=== PATIENT | male | born 1945 | race Hispanic/Latino ===

== ENCOUNTER 2018-01-29 21:26 | Inpatient (IN) | payer MEDICARE, OTHER ==
--- NOTE | 2018-01-29 21:36 | ED PDOC ---
Arrival/HPI <Mitesh York - Last Filed: 01/29/18 22:27> - General Historian: Patient <Diaz Chun - Last Filed: 01/29/18 23:47> - General Time Seen by Provider: 01/29/18 21:28 - History of Present Illness Narrative History of Present Illness (Text): 01/29/18 21:31 72 y/o male, pmh including htn/hyperlipidemia/dm, nkda, c/o coughing/fatigue/ fever x 3 days. Pt. stated that he has been not feeling well for the past 3 days, aching pain all over the body, associated with coughing and fever at home , no chest pain or shortness of breath, no night sweat, no change in vision, no flank pain, no rash, no neck stiffness, no recent traveling, no other medical or psychological complaints. (Diaz Chun) Past Medical History - Provider Review Nursing Documentation Reviewed: Yes - Cardiac Hx Pacemaker: No - Pulmonary Hx Respiratory Disorders: No - Neurological Hx Paralysis: No - HEENT Hx HEENT Disorder: No - Renal Hx Renal Disorder: No - Endocrine/Metabolic Hx Diabetes Mellitus Type 2: Yes - Hematological/Oncological Hx Blood Transfusions: No - Integumentary Hx Dermatological Disorder: No - Musculoskeletal/Rheumatological Hx Arthritis: Yes - Gastrointestinal Hx Gastrointestinal Disorders: No - Genitourinary/Gynecological Hx Genitourinary Disorders: No - Psychiatric Hx Emotional Abuse: No Hx Physical Abuse: No Hx Substance Use: No - Surgical History Hx Appendectomy: Yes Hx Cholecystectomy: Yes - Anesthesia Hx Anesthesia Reactions: No Hx Malignant Hyperthermia: No - Suicidal Assessment Feels Threatened In Home Enviroment: No <Diaz Chun - Last Filed: 01/29/18 23:47> Family/Social History - Physician Review Nursing Documentation Reviewed: Yes Family/Social History: Unknown Family HX Smoking Status: Former Smoker Hx Alcohol Use: Yes (5 BEERS/WEEK) Hx Substance Use: No Hx Substance Use Treatment: No <Diaz Chun - Last Filed: 01/29/18 23:47> Allergies/Home Meds <Mitesh York - Last Filed: 01/29/18 22:27> <Diaz Chun - Last Filed: 01/29/18 23:47> Allergies/Adverse Reactions: Allergies No Known Allergies Allergy (Verified 01/29/18 21:31) Home Medications: Home Meds Medication Instructions Recorded Confirmed Glipizide [Glucotrol] 5 mg PO DAILY 11/17/14 01/29/18 amLODIPine [Norvasc] 10 mg PO DAILY 11/17/14 01/29/18 Clopidogrel [Plavix] 75 mg PO DAILY 11/20/14 01/29/18 Aspirin [Adult Low Dose Aspirin EC] 81 mg PO DAILY 02/23/16 01/29/18 Atorvastatin [Lipitor] 10 mg PO DAILY 02/23/16 01/29/18 MetFORMIN [glucoPHAGE] 500 mg PO BID 02/23/16 01/29/18 Lisinopril/Hydrochlorothiazide 1 each PO DAILY 05/03/17 01/29/18 [Zestoretic 20-25 mg Tablet] Review of Systems - Review of Systems Constitutional: Fatigue, Fevers Eyes: absent: Vision Changes ENT: Rhinorrhea. absent: Hearing Changes, Sore Throat Respiratory: Cough, Sputum. absent: SOB, Wheezing Cardiovascular: absent: Chest Pain Gastrointestinal: absent: Abdominal Pain, Diarrhea, Nausea, Vomiting Musculoskeletal: Myalgias. absent: Arthralgias, Back Pain Skin: absent: Rash, Pruritis Neurological: absent: Headache, Dizziness Psychiatric: absent: Anxiety, Depression, Suicidal Ideation <Diaz Chun Q - Last Filed: 01/29/18 23:47> Physical Exam - Systems Exam Head: Present: Atraumatic, Normocephalic Pupils: Present: PERRL Extroacular Muscles: Present: EOMI Conjunctiva: Present: Normal Mouth: Present: Moist Mucous Membranes Pharnyx: No: ERYTHEMA, EXUDATE, TONSILS ENLARGED Nose (External): Present: Atraumatic. No: Abrasion, Contusion, Laceration Nose (Internal): Present: Normal Inspection, No Active Bleeding. No: Rhinorrhea , Septal Hematoma, Epistaxis Neck: Present: Normal Range of Motion, Trachea Midline. No: Meningeal Signs, MIDLINE TENDERNESS, Paraspinal Tenderness, Lymphadenopathy Respiratory/Chest: Present: Clear to Auscultation, Good Air Exchange, Rhonchi ( LLL). No: Respiratory Distress, Accessory Muscle Use, Wheezes, Decreased Breath Sounds, Rales, Retracting, Tachypneic, Tender to Palpation Cardiovascular: Present: Regular Rate and Rhythm, Normal S1, S2. No: Murmurs Abdomen: Present: Normal Bowel Sounds. No: Tenderness, Distention, Peritoneal Signs, Rebound, Guarding Back: Present: Normal Inspection Upper Extremity: Present: Normal Inspection. No: Cyanosis, Edema Lower Extremity: Present: Normal Inspection. No: Edema Neurological: Present: GCS=15, CN II-XII Intact, Speech Normal, Motor Func Grossly Intact, Gait Normal, Memory Normal Skin: Present: Warm, Dry, Normal Color. No: Rashes Psychiatric: Present: Alert, Oriented x 3, Normal Insight, Normal Concentration <Diaz Chun Q - Last Filed: 01/29/18 23:47> Vital Signs Temp Pulse Resp BP Pulse Ox 01/29/18 23:16 100.2 F H 102 H 25 H 121/42 L 95 01/29/18 22:23 100 F H 01/29/18 21:41 100 F H 01/29/18 21:29 100 F H 113 H 21 94 L Medical Decision Making <Mitesh York - Last Filed: 01/29/18 22:27> - Critical Care Critical Care Minutes: 30 minutes Critical Care Time: Unstable - RAD Interpretation Civil Project Engineer: Radiologist - EKG Interpretation Interpreted by ED Physician: Yes Type: 12 lead EKG Comparison: Com.w/previous EKG <Diaz Chun Q - Last Filed: 01/29/18 23:47> ED Course and Treatment: 01/29/18 21:41 -labs/ua/rapid flu -chest xray -IVF/tylenol -observe and reassess 01/29/18 22:28 -Lactic acid 3.9, IV rocephine/azithromycin ordered, rapid flu is negative -Code sepsis activated. 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 -Chest xray show LEFT lower lobe pneumonia. -Labs show no acute findings except wbc 22.2, BUN 40, BNP 2800, troponin is 0.07 which is indeterminate with unknown onset of WPW. -Lactic acid 3.9 -UA is pending -Rapid flu is negative -Pt. will need admission for IV antibiotic with the dietetics professor consult and infectious disease consult. -Paging the admitting physician Dr. Cameron for admission and DR. Benton for ICU consult 01/29/18 23:28 -I discussed the case with DR. Cameron, discussed about the case/labs/ radiology result, agreed on the admission to his service with DR. Ryan garcia and Dr. Pierre for routine consults. -I discussed the case with Dr. Benton, discussed about the case/labs/radiology result, came to evaluate the patient. -I discussed with Dr. York, discussed about the case/labs/radiology result , agreed this patient needs ICU consult and admission. 01/29/18 23:46 -Dr. Benton evaluated the patient and discussed with DR. York (Diaz Chun) - Critical Care Narrative Critical Care (Text): 01/29/18 23:31 Sepsis/pneumonia/elevated troponin, hypotensive, dietetics professor/ICU/infectious disease consults. (Diaz Chun) - Lab Interpretations Lab Results: 01/29/18 22:50 01/29/18 22:52 Lab Results 01/29/18 22:52: Sodium 135, Chloride 93 L, Potassium 4.4, Carbon Dioxide 31, Anion Gap 16, BUN 40 H, Creatinine 1.4, Est GFR ( Amer) > 60, Est GFR ( Non-Af Amer) 50, Random Glucose 330 H* D, Calcium 9.2, Magnesium 2.1, Total Bilirubin 0.6, AST 32, ALT 48, Alkaline Phosphatase 89, Lactate Dehydrogenase 408, Total Creatine Kinase 30 L, Troponin I 0.07 D, NT-Pro-B Natriuret Pep 2800 H, Total Protein 7.0, Albumin 3.5, Globulin 3.5, Albumin/Globulin Ratio 1.0 L 01/29/18 22:50: WBC 22.2 H D, RBC 4.09, Hgb 13.0 L, Hct 38.8 L, MCV 94.9, MCH 31.8, MCHC 33.5, RDW 14.2, Plt Count 327, MPV 9.8, Gran % 89.0 H, Lymph % (Auto ) 4.3 L, [place]berg % (Auto) 6.6 H, Eos % (Auto) 0.0 L, Baso % (Auto) 0.1, Gran # 19.77 H, Lymph # (Auto) 1.0 L, [place] # (Auto) 1.5 H, Eos # (Auto) 0.0, Baso # ( Auto) 0.03, Neutrophils % (Manual) Pending, Lymphocytes % (Manual) Pending, Monocytes % (Manual) Pending 01/29/18 21:35: pO2 121 H, VBG pH 7.35, VBG pCO2 54.0, VBG HCO3 29.8 H, VBG Total CO2 31.5 H, VBG O2 Sat (Calc) 98.7 H, VBG Base Excess 2.9 H, VBG Potassium 6.4 H*, Sodium 132.0, Chloride 96.0 L, Glucose 316 H, Lactate 3.9 H, FiO2 21.0, Venous Blood Potassium 6.4 H* 01/29/18 21:35: Influenza Typ A,B (EIA) Negative for flu a/b - RAD Interpretation Radiology Orders: 01/29/18 21:37 CHEST PORTABLE [RAD] Stat 01/29/18 21:37 CHEST PORTABLE [RAD] Stat FINDINGS: Lungs: Increased opacity within retrocardiac region. Pleural space: No pleural effusion. No pneumothorax. Heart: Borderline cardiomegaly. Mediastinum: Atherosclerosis of thoracic aorta. Bones/joints: No acute fracture. Tubes, lines and devices: Leads overlying chest. IMPRESSION: 1. LEFT lower lobe atelectasis and/or pneumonia. 2. Incidental/non-acute findings are described above. Thank you for allowing us to participate in the care of your patient. Dictated and Authenticated by: Justino Lama MD 01/29/2018 11:07 PM Eastern Time ([place] & [place]) (Diaz Chun) - EKG Interpretation EKG Interpretation (Text): 01/29/18 22:01 Sinus Tachycardia @ 109 BPM, WPW noted with PAC and delta waves, compared with previous ekgs. (Diaz Chun) - Medication Orders Current Medication Orders: Sodium Chloride (Sodium Chloride 0.9%) 1,000 mls @ 100 mls/hr IV .Q10H GHAZAL Last Admin: 01/29/18 22:30 Dose: 100 mls/hr eMAR Start Stop Document 01/29/18 22:30 JOL (Rec: 01/29/18 23:29 JOL [id number]) Intravenous Solution Start Date 01/29/18 Start Time 22:30 Azithromycin (Zithromax 500mg In Ns) 500 mg in 250 mls @ 167 mls/hr IVPB STAT STA PRN Reason: Protocol Stop: 01/29/18 23:55 Discontinued Medications Acetaminophen (Tylenol 325mg Tab) 650 mg PO STAT STA Stop: 01/29/18 21:38 Last Admin: 01/29/18 22:23 Dose: 650 mg MAR Pain/Vitals Document 01/29/18 22:23 JOL (Rec: 01/29/18 22:24 JOL [id number]) Pain Reassessment Is This A Pain ReAssessment? No Sleep Is patient sleeping during reassessment? No Presence of Pain Presence of Pain No Vitals Temperature (97.6 F-99.6 F) 100 F Temperature Source Oral Albuterol/Ipratropium (Duoneb 3 Mg/0.5 Mg (3 Ml) Ud) 3 ml IH Q15M GHAZAL Stop: 01/29/18 22:46 Last Admin: 01/29/18 23:10 Dose: 3 ml Aspirin (Aspirin) 325 mg PO STAT STA Stop: 01/29/18 23:24 Ceftriaxone Sodium (Rocephin 1 Gram Ivpb) 1 gm in 100 mls @ 200 mls/hr IVPB STAT STA PRN Reason: Protocol Stop: 01/29/18 22:55 Last Admin: 01/29/18 23:10 Dose: 200 mls/hr eMAR Start Stop Document 01/29/18 23:10 JOL (Rec: 01/29/18 23:29 JOL [id number]) Intravenous Solution Start Date 01/29/18 Start Time 23:10 End Date 01/29/18 End time 23:40 Total Infusion Time 30 - PA / MACHINE ETCHER / Resident Statement MELCHOR has reviewed & agrees with the documentation as recorded. MELCHOR has examined the patient and agrees with the treatment plan. <Mitesh York - Last Filed: 01/29/18 22:27> - PA / MACHINE ETCHER / Resident Statement MELCHOR has reviewed & agrees with the documentation as recorded. MELCHOR has examined the patient and agrees with the treatment plan. <Diaz Chun - Last Filed: 01/29/18 23:47> Disposition/Present on Arrival <Mitesh York - Last Filed: 01/29/18 22:27> - Present on Arrival Any Indicators Present on Arrival: No History of DVT/PE: No History of Uncontrolled Diabetes: No Urinary Catheter: No History of Decub. Ulcer: No History Surgical Site Infection Following: None - Disposition Have Diagnosis and Disposition been Completed?: Yes Disposition Time: 21:41 Patient Plan: Admission, ICU <Diaz Chun - Last Filed: 01/29/18 23:47> - Disposition Diagnosis: Sepsis, Pneumonia, WPW (Lhrns-Ammfsqkdo-Jieyf syndrome), Elevated troponin, Dehydration, CHF (congestive heart failure) Disposition: HOSPITALIZED Patient Problems: Current Active Problems Problem Status Onset Sepsis Acute Pneumonia Acute WPW (Mcmgx-Ppsdistug-Ssrhk syndrome) Acute Elevated troponin Acute Dehydration Acute CHF (congestive heart failure) Acute Condition: GUARDED Discharge Instructions (ExitCare): Heart Failure (ED), Sepsis (ED), Ty- Parkinson-White Syndrome (ED) Referrals: Angel Cameron MD [Primary Care Provider] - Follow up with primary
[2018-01-29 22:14] LABS: VENOUS BLOOD GAS BASE EXCESS 2.9 mmol/L (0.0-2.0); VENOUS BLOOD GAS PO2 121 mm/Hg (30-55); VENOUS BLOOD PH 7.35 (7.32-7.43)
[2018-01-29] MEDS: Albuterol-Ipratrop 3 mg / 0.5 (3 ml) UD IH SCH ×3 (22:24→23:10)
[2018-01-29] MEDS ORDERED: cefTRIAXone 1 gm 1 GM/100 ML BAG IVPB STA (22:26)
[2018-01-29] MEDS ORDERED: Azithromycin 500MG/NS 250ml 500 MG/250 ML BAG IVPB STA (22:26)
[2018-01-29] MEDS: Sodium Chloride 0.9% 1,000 ML IV SCH (22:30)
[2018-01-29 23:06] LABS: BASO # 0.03 K/mm3 (0.0-2.0); BASO % 0.1 % (0.0-3.0); GRAN # 19.77 (1.4-6.5); LYMPH % 4.3 % (22.0-35.0); MEAN CELL VOLUME 94.9 fl (80.0-105.0); MEAN CORPUSCULAR HEMOGLOBIN 31.8 pg (25.0-35.0); MEAN CORPUSCULAR HGB CONC 33.5 g/dl (31.0-37.0); MEAN PLATELET VOLUME 9.8 fl (7.0-11.0); MONO # 1.5 (0.1-0.6); MONO % 6.6 % (1.0-6.0); PLATELET COUNT 327 10^3/uL (120.0-450.0); RBC 4.09 10^6/uL (3.5-6.1); RED CELL DISTRIBUTION WIDTH 14.2 % (11.5-14.5); WHITE BLOOD COUNT 22.2 10^3/ul (4.5-11.0)
--- NOTE | 2018-01-29 23:07 | RAD ---
EXAM: XR Chest, 1 View CLINICAL HISTORY: 72 years old, male; Signs and symptoms; Shortness of breath; Additional info: Medical clearance TECHNIQUE: Frontal view of the chest. COMPARISON: No relevant prior studies available. FINDINGS: Lungs: Increased opacity within retrocardiac region. Pleural space: No pleural effusion. No pneumothorax. Heart: Borderline cardiomegaly. Mediastinum: Atherosclerosis of thoracic aorta. Bones/joints: No acute fracture. Tubes, lines and devices: Leads overlying chest. IMPRESSION: 1. LEFT lower lobe atelectasis and/or pneumonia. 2. Incidental/non-acute findings are described above.
[2018-01-29 23:19] LABS: B-TYPE NATRIURETIC PEPTIDE 2800 pg/mL (0-450); TROPONIN I 0.07 ng/mL
[2018-01-29 23:26] LABS: ALBUMIN 3.5 g/dL (3.0-4.8); ALT/SGPT 48 U/L (7-56); AST/SGOT 32 U/L (17-59); BLOOD UREA NITROGEN 40 mg/dL (7-21); CALCIUM 9.2 mg/dL (8.4-10.5); GFR AFRICAN-AMERICAN > 60; GFR NON-AFRICAN AMERICAN 50
[2018-01-30 00:21] LABS: BAND 6 % (0-2); LYMPHOCYTE 3 % (22.0-35.0); MONOCYTE 6 % (1.0-6.0); NEUTROPHIL 85 % (50.0-70.0); PLATELET ESTIMATE NORMAL (NORMAL)
[2018-01-30 00:22] LABS: ROULEAU SLIGHT
--- NOTE | 2018-01-30 01:34 | CP.PCM.CON ---
History of Present Illness - History of Present Illness History of Present Illness: PGY-2 ICU consult note 72 yo male with pmh including HTN, hyperlipidemia, dm, presented with complaint of coughing, fatigue and fever for 3 days. Patient stated that he has been not feeling well for the past 3 days, aching pain all over the body, associated with coughing and subjective fever at home. He states that to he became short of breath. He denies chest pain, night sweat, change in vision, flank pain, rash , neck stiffness. No recent traveling, no sick contacts. no other medical or psychological complaints. IN ED patient was found to have PNE. PMH: Htn, hyperlipidemia, dm psh: appendectomy, cholecystectomy, cardiac stent social history: former smoker, 1 beer/day, denies illicit drug. allergy: nkda Review of Systems - Review of Systems All systems: reviewed and no additional remarkable complaints except Past Patient History - Infectious Disease Hx of Infectious Diseases: None - Past Social History Smoking Status: Former Smoker - CARDIAC Hx Pacemaker: No - PULMONARY Hx Respiratory Disorders: No - NEUROLOGICAL Hx Paralysis: No - HEENT Hx HEENT Problems: No - RENAL Hx Chronic Kidney Disease: No - ENDOCRINE/METABOLIC Hx Diabetes Mellitus Type 2: Yes - HEMATOLOGICAL/ONCOLOGICAL Hx Blood Transfusions: No - INTEGUMENTARY Hx Dermatological Problems: No - MUSCULOSKELETAL/RHEUMATOLOGICAL Hx Arthritis: Yes - GASTROINTESTINAL Hx Gastrointestinal Disorders: No - GENITOURINARY/GYNECOLOGICAL Hx Genitourinary Disorders: No - PSYCHIATRIC Hx Emotional Abuse: No Hx Physical Abuse: No Hx Substance Use: No - SURGICAL HISTORY Hx Appendectomy: Yes Hx Cholecystectomy: Yes - ANESTHESIA Hx Anesthesia Reactions: No Hx Malignant Hyperthermia: No Meds Allergies/Adverse Reactions: Allergies Allergy/AdvReac Type Severity Reaction Status Date / Time No Known Allergies Allergy Verified 01/29/18 21:31 - Medications Medications: Current Medications Sodium Chloride (Sodium Chloride 0.9%) 1,000 mls @ 100 mls/hr IV .Q10H GHAZAL Last Admin: 01/29/18 22:30 Dose: 100 mls/hr Physical Exam - Constitutional Appears: No Acute Distress - Head Exam Head Exam: ATRAUMATIC, NORMAL INSPECTION, NORMOCEPHALIC - Eye Exam Eye Exam: EOMI, Normal appearance - ENT Exam ENT Exam: Mucous Membranes Moist - Respiratory Exam Respiratory Exam: Wheezes, NORMAL BREATHING PATTERN. absent: Rales, Rhonchi, Respiratory Distress - Cardiovascular Exam Cardiovascular Exam: REGULAR RHYTHM, +S1, +S2. absent: Diastolic murmur, Systolic Murmur - GI/Abdominal Exam GI & Abdominal Exam: Normal Bowel Sounds, Soft. absent: Distended, Firm, Guarding, Tenderness - Extremities Exam Extremities exam: Positive for: normal inspection. Negative for: pedal edema, tenderness - Neurological Exam Neurological exam: Alert, Oriented x3 - Skin Skin Exam: Dry, Intact, Normal Color, Warm Results - Vital Signs Recent Vital Signs: Last Vital Signs Temp 100.2 F H 01/29/18 23:16 Pulse 102 H 01/29/18 23:16 Resp 25 H 01/29/18 23:16 BP 121/42 L 01/29/18 23:16 Pulse Ox 95 01/29/18 23:16 - Labs Result Diagrams: 01/29/18 22:50 01/29/18 22:52 Labs: Laboratory Results - last 24 hr 01/29/18 01/29/18 01/29/18 21:35 21:35 22:50 WBC 22.2 H D RBC 4.09 Hgb 13.0 L Hct 38.8 L MCV 94.9 MCH 31.8 MCHC 33.5 RDW 14.2 Plt Count 327 MPV 9.8 Gran % 89.0 H Lymph % (Auto) 4.3 L [place] % (Auto) 6.6 H Eos % (Auto) 0.0 L Baso % (Auto) 0.1 Gran # 19.77 H Lymph # (Auto) 1.0 L [place] # (Auto) 1.5 H Eos # (Auto) 0.0 Baso # (Auto) 0.03 Neutrophils % (Manual) 85 H Band Neutrophils % 6 H Lymphocytes % (Manual) 3 L Monocytes % (Manual) 6 Platelet Evaluation Normal Rouleaux Slight pO2 121 H VBG pH 7.35 VBG pCO2 54.0 VBG HCO3 29.8 H VBG Total CO2 31.5 H VBG O2 Sat (Calc) 98.7 H VBG Base Excess 2.9 H VBG Potassium 6.4 H* Sodium 132.0 Chloride 96.0 L Glucose 316 H Lactate 3.9 H FiO2 21.0 Potassium Carbon Dioxide Anion Gap BUN Creatinine Est GFR ( Amer) Est GFR (Non-Af Amer) Random Glucose Calcium Magnesium Total Bilirubin AST ALT Alkaline Phosphatase Lactate Dehydrogenase Total Creatine Kinase Troponin I NT-Pro-B Natriuret Pep Total Protein Albumin Globulin Albumin/Globulin Ratio Venous Blood Potassium 6.4 H* Influenza Typ A,B (EIA) Negative for flu a/b 01/29/18 22:52 WBC RBC Hgb Hct MCV MCH MCHC RDW Plt Count MPV Gran % Lymph % (Auto) [place] % (Auto) Eos % (Auto) Baso % (Auto) Gran # Lymph # (Auto) [place] # (Auto) Eos # (Auto) Baso # (Auto) Neutrophils % (Manual) Band Neutrophils % Lymphocytes % (Manual) Monocytes % (Manual) Platelet Evaluation Rouleaux pO2 VBG pH VBG pCO2 VBG HCO3 VBG Total CO2 VBG O2 Sat (Calc) VBG Base Excess VBG Potassium Sodium 135 Chloride 93 L Glucose Lactate FiO2 Potassium 4.4 Carbon Dioxide 31 Anion Gap 16 BUN 40 H Creatinine 1.4 Est GFR ( Amer) > 60 Est GFR (Non-Af Amer) 50 Random Glucose 330 H* D Calcium 9.2 Magnesium 2.1 Total Bilirubin 0.6 AST 32 ALT 48 Alkaline Phosphatase 89 Lactate Dehydrogenase 408 Total Creatine Kinase 30 L Troponin I 0.07 D NT-Pro-B Natriuret Pep 2800 H Total Protein 7.0 Albumin 3.5 Globulin 3.5 Albumin/Globulin Ratio 1.0 L Venous Blood Potassium Influenza Typ A,B (EIA) Assessment & Plan - Assessment and Plan (Free Text) Assessment: 72 yo male with pmh including Htn, hyperlipidemia, diabetes, presented with complaint of coughing, fatigue and fever, he was found to have PNA. ICU was consulted, currently patient is stable and does not require ICU. Recommend tele monitoring, antibiotic and IVF.
[2018-01-30 01:44] LABS: INR 1.22 (0.93-1.08); PARTIAL THROMBOPLASTIN TIME 29.7 Seconds (25.1-36.5)
[2018-01-30 01:51] LABS: VENOUS BLOOD GAS BASE EXCESS 0.4 mmol/L (0.0-2.0); VENOUS BLOOD GAS PO2 21 mm/Hg (30-55)
--- NOTE | 2018-01-30 01:57 | PCM.SEPTIC ---
Sepsis Progress Note - Reassessment Type Date of Evaluation: 01/30/18 Time of Evaluation: 01:57 Reassessment Type: Non-invasive reassessment - Non Invasive Reassessment Were the most recent vital sign reviewed: Yes Vital Sign (Latest): Temp Pulse Resp BP Pulse Ox 100.2 F H 102 H 25 H 121/42 L 95 01/29/18 23:16 01/29/18 23:16 01/29/18 23:16 01/29/18 23:16 01/29/18 23:16 Cardiovascular: Yes: Regular Rate, Rhythm. No: Bradycardia, Tachycardia, Irregularly Irregular Respiratory: Yes: Normal Breath Sounds, Rhonchi, Wheezing. No: Respiratory Distress Capillary Refill: Normal (Less than 2 sec) Skin: Normal Color, Warm, Dry
[2018-01-30 02:50] VITALS: BMI 34.2
[2018-01-30 04:20] LABS: PH,URINE 5.5 (4.7-8.0); URINE BILIRUBIN NEGATIVE (NEGATIVE); URINE BLOOD NEGATIVE (NEGATIVE); URINE GLUCOSE (UA) 500 mg/dL (NEGATIVE); URINE LEUKOCYTE ESTERASE NEGATIVE Leu/uL (NEGATIVE); URINE PROTEIN 30 mg/dL (<30 mg/dL)
[2018-01-30 04:21] LABS: URINE APPEARANCE SL CLOUDY (CLEAR); URINE COLOR YELLOW (YELLOW)
[2018-01-30 04:44] LABS: URINE BACTERIA SMALL (NEG); URINE EPITHELIAL CELLS 0 - 2 /hpf (0-5); URINE RBC 0 - 2 /hpf (0-2)
[2018-01-30 04:45] LABS: URINE AMORPHOUS SEDIMENT FEW
--- NOTE | 2018-01-30 06:50 | CP.PCM.PN ---
Subjective - Date & Time of Evaluation Date of Evaluation: 01/30/18 Time of Evaluation: 06:46 - Subjective Subjective: S: Nurse calls with lactate level 5.0. Patient was seen, has no complaints now. Medical record was reviewed. O: Last Vital Signs 3 Temp 97.5 F L 01/30/18 05:32 Pulse 85 01/30/18 05:32 Resp 20 01/30/18 05:32 BP 126/44 L 01/30/18 05:32 Pulse Ox 92 L 01/30/18 05:32 Obese person, not in acute distress. Lungs:Normal breathing pattern. A:Sepsis. PNA. P:Continue hydration, IV antibiotics. Observation. Objective - Vital Signs/Intake and Output Vital Signs (last 24 hours): Temp Pulse Resp BP Pulse Ox 97.5 F L 85 20 126/44 L 92 L 01/30/18 05:32 01/30/18 05:32 01/30/18 05:32 01/30/18 05:32 01/30/18 05:32 Intake and Output: 01/29/18 01/30/18 18:59 06:59 Intake Total 400 Balance 400 - Medications Medications: Current Medications Sodium Chloride (Sodium Chloride 0.9%) 1,000 mls @ 100 mls/hr IV .Q10H GHAZAL Last Admin: 01/29/18 22:30 Dose: 100 mls/hr Ceftriaxone Sodium (Rocephin 1 Gram Ivpb) 1 gm in 100 mls @ 100 mls/hr IVPB DAILY GHAZAL PRN Reason: Protocol Oseltamivir Phosphate (Tamiflu Susp) 30 mg PO BID GHAZAL PRN Reason: Protocol - Labs Labs: PT 14.0 SECONDS (9.4-12.5) H 01/30/18 01:20 INR 1.22 (0.93-1.08) H 01/30/18 01:20 APTT 29.7 Seconds (25.1-36.5) 01/30/18 01:20
[2018-01-30 06:54] LABS: VENOUS BLOOD GAS BASE EXCESS 5.3 mmol/L (0.0-2.0); VENOUS BLOOD GAS PO2 19 mm/Hg (30-55); VENOUS BLOOD PH 7.33 (7.32-7.43)
[2018-01-30] MEDS: Sodium Chloride 0.9% 1,000 ML IV SCH ×2 (09:42→17:45)
[2018-01-30] MEDS: cefTRIAXone 1 gm 1 GM/100 ML BAG IVPB SCH (09:43)
[2018-01-30] MEDS: Oseltamivir 6 MG/ML PO SCH ×2 (09:43→22:26)
[2018-01-30] MEDS ORDERED: Enoxaparin 120 mg Syringe SC STA (10:32)
[2018-01-30 10:56] LABS: BASO # 0.02 K/mm3 (0.0-2.0); BASO % 0.1 % (0.0-3.0); GRAN # 15.79 (1.4-6.5); GRAN % 83.6 % (50.0-68.0); HEMOGLOBIN 11.3 g/dL (14.0-18.0); LYMPH # 1.5 (1.2-3.4); MEAN CELL VOLUME 97.8 fl (80.0-105.0); MEAN CORPUSCULAR HEMOGLOBIN 31.2 pg (25.0-35.0); MEAN CORPUSCULAR HGB CONC 31.9 g/dl (31.0-37.0); MEAN PLATELET VOLUME 9.8 fl (7.0-11.0); MONO # 1.6 (0.1-0.6); MONO % 8.3 % (1.0-6.0); RBC 3.62 10^6/uL (3.5-6.1); RED CELL DISTRIBUTION WIDTH 14.7 % (11.5-14.5); WHITE BLOOD COUNT 18.9 10^3/ul (4.5-11.0)
[2018-01-30 11:16] LABS: ALBUMIN 3.2 g/dL (3.0-4.8); ALT/SGPT 48 U/L (7-56); AST/SGOT 30 U/L (17-59); BLOOD UREA NITROGEN 42 mg/dL (7-21); CALCIUM 8.6 mg/dL (8.4-10.5); GFR AFRICAN-AMERICAN > 60; GFR NON-AFRICAN AMERICAN 50
[2018-01-30] MEDS ORDERED: HYDROCHLOROTHIAZIDE PO SCH (11:30)
[2018-01-30] MEDS ORDERED: [UNRECOGNIZED DRUG - OTHER] PO SCH (11:30)
[2018-01-30] MEDS ORDERED: LISINOPRIL PO SCH (11:30)
--- NOTE | 2018-01-30 14:15 | CON ---
DATE: 01/30/2018 CARDIOLOGY CONSULTATION HISTORY: The patient is a 72-year-old male, who presents with progressive shortness of breath including progression to shortness of breath at rest. The patient was brought into the emergency room where he was found to have a left lower lobe pneumonia and was treated with IV antibiotics. The patient's past medical history includes hypertension, diabetes mellitus and hypercholesterolemia. He is status post PTCA and stent x3. He denies chest pain. SOCIAL HISTORY: He is a former smoker and he stopped since 2014. REVIEW OF SYSTEMS: Fourteen-point review of systems was reviewed. Positive orthopnea. Positive dyspnea on exertion. Negative angina. Negative edema in the lower extremities. Negative bleeding history. PHYSICAL EXAMINATION: VITAL SIGNS: Blood pressure is 126/44 with the heart rates in the 80s. NECK: Negative JVD. LUNGS: Bilateral rhonchi with crackles at the bases. HEART: Reveals S1, S2. EXTREMITIES: Without edema. EKG shows left anterior hemiblock with frequent PVCs. LABORATORY DATA: Laboratories includes a white count of 22,000, hemoglobin of 13. Chemistries: BUN and creatinine are 40 and 1.4. The glucose is 330. ProBNP is 2800. The troponin is trending up from 0.07 to 0.11. IMPRESSION: 1. Acute systolic congestive heart failure. 2. Pneumonia. 3. Ptu-PB-wcpvyssyh myocardial infarction. 4. Coronary artery disease. 5. History of percutaneous transluminal coronary angioplasty and stent in the past. 6. Obesity. 7. Diabetes mellitus. 8. Hypertension. 9. Hypercholesterolemia. PLAN: 1. Given these findings, we will start the patient on subcu Lovenox x1 dose. 2. Aspirin and Plavix. 3. Continue IV antibiotics. 4. One dose of IV Lasix. 5. We will proceed to cardiac catheterization in the morning. I have discussed this with the patient and in detail. Ryan Benitez MD
--- NOTE | 2018-01-30 15:29 | CARD ---
APPROVED REPORT EKG Measurement Heart [id number] ME 160P4 [id number] <Conclusion> Sinus rhythm with fusion complexes possible Cerzk-Atacyaots-Cyyly Abnormal ECG
--- NOTE | 2018-01-30 17:30 | CP.PCM.CON ---
History of Present Illness - History of Present Illness History of Present Illness: 72 year old male with PMH of HTN, DM, dyslipidemia, S/P cholecystectomy, S/P appendectomy, CAD S/P PCI, obesity with BMI 34 came in to [facility] complaining of cough, body aches and weakness for the past 3 days associated with some dyspnea on exertion. He denies chest pain, no headache or dizziness, no sore throat, no rhinorrhea, no dysphagia, no abdominal pain, no diarrhea, no dysuria. CXR was done which is showing possible infiltrates on the left lower lobe. Infectious Diseases consult is requested to further evaluate and manage. Review of Systems - Review of Systems All systems: reviewed and no additional remarkable complaints except (as per HPI ) Past Patient History - Infectious Disease Hx of Infectious Diseases: None - Past Social History Smoking Status: Former Smoker - CARDIAC Hx Cardiac Disorders: Yes Hx Hypercholesterolemia: Yes Hx Hypertension: Yes Other/Comment: carotid stenosis - PULMONARY Hx Respiratory Disorders: No - NEUROLOGICAL Hx Neurological Disorder: No - HEENT Hx HEENT Problems: Yes Hx Cataracts: Yes (with surgery) - RENAL Hx Chronic Kidney Disease: No - ENDOCRINE/METABOLIC Hx Endocrine Disorders: Yes Hx Diabetes Mellitus Type 2: Yes - HEMATOLOGICAL/ONCOLOGICAL Hx Blood Disorders: No - INTEGUMENTARY Hx Dermatological Problems: Yes (Precancerous lesions to scalp) - MUSCULOSKELETAL/RHEUMATOLOGICAL Hx Musculoskeletal Disorders: Yes Hx Arthritis: Yes Hx Falls: No Hx Spinal Stenosis: Yes - GASTROINTESTINAL Hx Gastrointestinal Disorders: No - GENITOURINARY/GYNECOLOGICAL Hx Genitourinary Disorders: No - PSYCHIATRIC Hx Psychophysiologic Disorder: No Hx Substance Use: No - SURGICAL HISTORY Hx Surgeries: Yes Hx Appendectomy: Yes Hx Cardiac Catheterization: Yes Hx Cholecystectomy: Yes Hx Coronary Stent: Yes (x4) Other/Comment: tonsillectomy - ANESTHESIA Hx Anesthesia Reactions: No Hx Malignant Hyperthermia: No Meds Allergies/Adverse Reactions: Allergies Allergy/AdvReac Type Severity Reaction Status Date / Time No Known Allergies Allergy Verified 01/29/18 21:31 - Medications Medications: Current Medications Sodium Chloride (Sodium Chloride 0.9%) 1,000 mls @ 100 mls/hr IV .Q10H GHAZAL Last Admin: 01/29/18 22:30 Dose: 100 mls/hr Ceftriaxone Sodium (Rocephin 1 Gram Ivpb) 1 gm in 100 mls @ 100 mls/hr IVPB DAILY GHAZAL PRN Reason: Protocol Oseltamivir Phosphate (Tamiflu Susp) 30 mg PO BID GHAZAL PRN Reason: Protocol Physical Exam - Constitutional Appears: Non-toxic, Chronically Ill - Head Exam Head Exam: NORMAL INSPECTION - Neck Exam Neck exam: Negative for: Lymphadenopathy, Meningismus - Respiratory Exam Respiratory Exam: Decreased Breath Sounds, Rales (at the bases) - Cardiovascular Exam Cardiovascular Exam: +S1, +S2 - GI/Abdominal Exam GI & Abdominal Exam: Soft. absent: Tenderness Results - Vital Signs Recent Vital Signs: Last Vital Signs Temp 97.5 F L 01/30/18 05:32 Pulse 85 01/30/18 05:32 Resp 20 01/30/18 05:32 BP 126/44 L 01/30/18 05:32 Pulse Ox 92 L 01/30/18 05:32 - Labs Result Diagrams: 01/30/18 06:30 01/30/18 06:30 Labs: Laboratory Results - last 24 hr 01/30/18 01/30/18 01/30/18 01:20 01:20 04:00 PT 14.0 H INR 1.22 H APTT 29.7 pO2 21 L VBG pH 7.30 L VBG pCO2 57.0 VBG HCO3 28.0 VBG Total CO2 29.7 H VBG O2 Sat (Calc) 41.5 VBG Base Excess 0.4 VBG Potassium 4.2 Sodium 134.0 Chloride 96.0 L Glucose 357 H Lactate 5.0 H* FiO2 21.0 Venous Blood Potassium 4.2 Urine Color Yellow Urine Appearance Sl cloudy Urine pH 5.5 Ur Specific [place] >= 1.030 Urine Protein 30 H Urine Glucose (UA) 500 H Urine Ketones Trace H Urine Blood Negative Urine Nitrate Negative Urine Bilirubin Negative Urine Urobilinogen 1.0 H Ur Leukocyte Esterase Negative Urine RBC 0 - 2 Urine WBC 1 - 3 Ur Epithelial Cells 0 - 2 Amorphous Sediment Few Urine Bacteria Small Assessment & Plan - Assessment and Plan (Free Text) Plan: Assessment Severe sepsis with acute renal failure due to left lower lobe community- acquired pneumonia on top of acute NSTEMI with acute on chronic CHF HTN DM dyslipidemia S/P cholecystectomy S/P appendectomy CAD S/P PCI obesity with BMI 34 Plan Started patient on Rocephin and Zithromax pending blood cx, sputum cx, PCT; reviewed CXR which showed left lower lobe infiltrate patient with flu-like illness and we have also started Tamiflu even though rapid flu test is negative follow up further plans of Cardiology will monitor clinically
[2018-01-30] MEDS: Azithromycin 500MG/NS 250ml 500 MG/250 ML BAG IVPB SCH (17:54)
--- NOTE | 2018-01-30 23:08 | HP ---
HISTORY OF PRESENT ILLNESS: The patient is a 72-year-old male who experienced increasing shortness of breath and productive cough over the past week, especially over the past 3 days. The cough was productive of clear mucus. He denies any chest pain, shortness of breath, or palpitations. As per the patient's , he was acting almost intoxicated on Tuesday and she was concerned that she should not leave him alone as she went off to work. As per the patient, he felt better on Tuesday, but Tuesday was worse, and therefore, he presented to the emergency room. He was evaluated and admitted. PAST MEDICAL HISTORY: He is known to have a history of jan-[id number]-[id number] diabetes mellitus, osteoarthritis. PAST SURGICAL HISTORY: He is status post appendectomy, status post cholecystectomy. He underwent stent placement x4 in 2014. SOCIAL HISTORY: He is a former smoker and nonalcoholic drinker. ALLERGIES: HE HAS NO KNOWN MEDICAL ALLERGIES. MEDICATIONS: At the time of admission include Glucotrol 5 mg, Norvasc 10 mg, Plavix 75 mg, aspirin 81 mg, Lipitor 10 mg, metformin 500 mg twice a day, and lisinopril/hydrochlorothiazide 20/25 once a day. PHYSICAL EXAMINATION: GENERAL: He is awake, alert, and oriented. His is at bedside when seen today. He denies any acute distress. VITAL SIGNS: He is afebrile at 97.5 degrees Fahrenheit, blood pressure is 126/44, heart rate is 85. HEENT: Examination of the head, eyes, ears, nose, and throat is unremarkable. NECK: Supple with no lymphadenopathy. No goiter. LUNGS: Show diffuse crackles throughout, especially on the left mid to lower lobe. HEART: Regular. No murmurs are appreciated. ABDOMEN: Round, soft, nontender, with no organomegaly. EXTREMITIES: Free of cyanosis, clubbing, or edema. LABORATORY STUDIES: Show the troponins to be 0.07. White blood cell count is 22.2, hemoglobin is 13, hematocrit is 38.8, and platelet count is 327. Sodium is 155, potassium is 4.5, blood urea nitrogen is 40, creatinine is 1.4. Platelet count is 350. BNP is elevated at 2800. ASSESSMENT AND PLAN: So the patient is being evaluated by Dr. Benitez, his repair welder, as well as Dr. Pierre, infectious disease specialist. The chest x-ray revealed a possible left lower lobe infiltrate versus atelectasis. His EKG showed sinus rhythm with fusion complexes, [id number]. Followup EKG taken 4 hours later showed sinus rhythm with premature atrial complexes with aberrant conduction, right bundle-branch block, left anterior fascicular block, and minimal voltage criteria for LVH. The patient is currently receiving Rocephin 1 g IV daily. We are continuing his Plavix and aspirin. He is receiving Tamiflu suspension twice a day. He is scheduled to go to the catheterization lab on Tuesday for a followup coronary catheterization. Ronald Cameron MD
--- NOTE | 2018-01-30 23:51 | CARD ---
APPROVED REPORT EKG Measurement Heart [id number] <Conclusion> Sinus rhythm with premature atrial complexes with aberrant conduction Right bundle branch block Left anterior fascicular block Bifascicular block Minimal voltage criteria for LVH, may be normal variant Abnormal ECG
[2018-01-31] MEDS: Sodium Chloride 0.9% 1,000 ML IV SCH ×3 (00:26→13:45)
[2018-01-31] MEDS ORDERED: Iohexol 350mgl/ml 50 ML ONE (07:58)
[2018-01-31] MEDS ORDERED: Lidocaine 2% Inj (20ml) ONE (07:58)
[2018-01-31] MEDS ORDERED: HEPARIN SODIUM/NS 1,000 ML IV ONE (07:58)
[2018-01-31] MEDS ORDERED: Iodixanol 320 MG/ML 200 ML BOTTLE IV ONE (07:58)
[2018-01-31] MEDS ORDERED: Nitroglycerin 50mg in D5W 0 MG/0 ML BOTTLE IV ONE (07:58)
[2018-01-31] MEDS ORDERED: Phenylephrine 10 mg/ml Inj ONE (07:59)
[2018-01-31] MEDS ORDERED: Midazolam 2 MG/2 ML VIAL ONE ×2 (08:50→09:21)
[2018-01-31] MEDS: cefTRIAXone 1 gm 1 GM/100 ML BAG IVPB SCH (13:06)
--- NOTE | 2018-01-31 13:15 | CARDCATH ---
PROCEDURE DATE: 01/31/2018 HISTORY: The patient is a 72-year-old male with multiple cardiac risk factors including multiple stents in the past, who presented with exertional shortness of breath. His troponins were borderline elevated. Because of this, a cardiac catheterization was recommended. PROCEDURE: Left heart catheterization with coronary arteriography and left ventriculogram. The right femoral artery was cannulated with 6-[place] sheath. There were no complications. I performed moderate sedation, which included the presence of an independent trained observer that assisted in monitoring the patient's level of consciousness and physiologic status. After administration of Versed and fentanyl, my intra service time was 15 minutes. The findings on catheterization revealed a preserved LV function. Ejection fraction could not be measured. His coronary anatomy revealed a right dominant circulation. The RCA revealed diffuse atherosclerosis without critical lesions. The left main artery was unremarkable. The LAD and diagonal vessels revealed diffuse atherosclerosis. There were patent stents in the mid and distal LAD. The circumflex artery and obtuse marginal branches revealed diffuse atherosclerosis. There was a patent stent in the circumflex artery. In the mid to distal portion of the obtuse marginal branch II, there was a 50-60% stenosis noted, which is unchanged from his previous cath. Angio-Seal was used to close the femoral artery site. The patient tolerated the procedure well. In summary, the procedure revealed preserved LV function. Patent stents in the LAD and circumflex artery. Nonobstructive and noncritical lesion with a 50-60% stenoses in the mid to distal circumflex artery. Diffuse atherosclerosis in his coronary tree. Given these findings, the patient will need to remain on aspirin indefinitely. A cardiac risk reduction program including a weight loss program would be important. I have discussed this with the patient and family in detail. Ryan Benitez MD
[2018-01-31] MEDS: Azithromycin 500MG/NS 250ml 500 MG/250 ML BAG IVPB SCH (15:38)
--- NOTE | 2018-01-31 20:07 | PN ---
DATE: SUBJECTIVE: The patient is seen earlier this morning in room 378, bed 2. No fevers, no chills, no nausea. PHYSICAL EXAMINATION: VITAL SIGNS: The patient's temperature of 98, blood pressure is 127/70, respiratory rate of 18, heart rate of 91. HEENT: Unremarkable. NECK: Supple. LUNGS: Decreased breath sounds. HEART: Normal S1, S2. ABDOMEN: Soft, nontender. LABORATORY EXAMINATION: Reveals a white count of 18,900, hemoglobin of 11, and platelets of 301. BUN of 42, creatinine of 1.4. Urinalysis is noted. Serology is noted. Urine for Legionella antigen is negative. Influenza is negative. Blood cultures have no growth at 24 hours. The patient is on ceftriaxone and azithromycin. The patient for cardiac catheterization. EKG shows a QTc of 398. ASSESSMENT AND PLAN: A 72-year-old male seen earlier this morning with a past medical history of hypertension, diabetes, dyslipidemia, history of cholecystectomy, appendectomy, coronary artery disease, PCI, obesity, BMI of 34 with severe sepsis, acute renal failure due to left lower lobe community-acquired pneumonia on top of acute non-ST elevation myocardial infarction with [id number] congestive heart failure. Ceftriaxone and Rocephin for left lower lobe community-acquired pneumonia and severe sepsis. The patient's fevers have responded and urine for Legionella antigen is negative and white count appears to be improving. We will change the Zithromax to p.o. and continue ceftriaxone for now. Follow the WBC count and final culture results. Patient is also on Tamiflu. The patient's procalcitonin is reported to be at 1.14. We will follow closely with you. Max Pierre MD
--- NOTE | 2018-02-01 00:15 | PN ---
DATE: 01/31/2018 SUBJECTIVE: Patient was seen this Tuesday at noon time in room 265, bed 1 with his and daughter at the bedside. He is awake, alert and clear, now immediately postop cardiac catheterization. Case was discussed with Dr. Benitez. Catheterization went well. Stents are patent. Pulmonary note, Cardiology note, vital signs and appreciated. He is doing well, clinically improving from his pneumonia. Fever has come down. White count has come down. We will continue with few more days of IV antibiotics and follow closely. Angel Cameron MD
[2018-02-01 02:46] VITALS: RESP 20
[2018-02-01 06:21] LABS: BASO # 0.05 K/mm3 (0.0-2.0); BASO % 0.4 % (0.0-3.0); EOS # 0.2 (0.0-0.7); EOS % 1.2 % (1.5-5.0); GRAN # 10.72 (1.4-6.5); HEMOGLOBIN 11.8 g/dL (14.0-18.0); LYMPH # 1.1 (1.2-3.4); LYMPH % 8.7 % (22.0-35.0); MEAN CELL VOLUME 96.3 fl (80.0-105.0); MEAN CORPUSCULAR HEMOGLOBIN 31.3 pg (25.0-35.0); MEAN CORPUSCULAR HGB CONC 32.5 g/dl (31.0-37.0); MEAN PLATELET VOLUME 9.5 fl (7.0-11.0); MONO # 0.9 (0.1-0.6); MONO % 6.7 % (1.0-6.0); RBC 3.77 10^6/uL (3.5-6.1); RED CELL DISTRIBUTION WIDTH 14.3 % (11.5-14.5); WHITE BLOOD COUNT 12.9 10^3/ul (4.5-11.0)
[2018-02-01 06:56] LABS: ALB/GLOB RATIO 0.9 (1.1-1.8); ALBUMIN 3.3 g/dL (3.0-4.8); ALT/SGPT 102 U/L (7-56); AST/SGOT 78 U/L (17-59); BLOOD UREA NITROGEN 26 mg/dL (7-21); CALCIUM 8.8 mg/dL (8.4-10.5); GFR AFRICAN-AMERICAN > 60; GFR NON-AFRICAN AMERICAN > 60
[2018-02-01] MEDS: cefTRIAXone 1 gm 1 GM/100 ML BAG IVPB SCH (09:48)
--- NOTE | 2018-02-01 14:20 | PN ---
DATE: The patient is a 72-year-old male who was admitted to the [facility] three days ago with shortness of breath diagnosed with sepsis and pneumonia. He is currently being treated with Rocephin, azithromycin and Tamiflu. His breathing has improved. He denies any shortness of breath. When seen today, he has just been moved up to the fifth floor from the Telemetry floor. Yesterday, he underwent coronary catheterization with Dr. Benitez and shows his stents to be patent. He did have, however, some cholesterol plaquing in the coronary arteries. On admission, his procalcitonin level was elevated at 1.14. When seen today, he is sitting up on the edge of bed. OBJECTIVE GENERAL: He is awake, alert and oriented. VITAL SIGNS: Stable. LUNGS: Clear. HEART: Regular. ABDOMEN: Soft and nontender. EXTREMITIES: There is +2 pretibial edema noted; as per the patient, this just started yesterday. LABORATORY DATA: His white blood cell count is down to 12.9 from 18.9 yesterday, hemoglobin and hematocrit are 11.8 and 36.3. Sodium is 137, potassium is 4.3, blood urea nitrogen is 26, creatinine is 0.9. His blood cultures today have been negative x2. So at this point, we are going to start Lasix 40 mg twice a day for the edema and continue to follow the patient closely. We will continue the antibiotics as per Infectious Disease, Dr. Pierre. We will also discuss the case with Dr. Benitez, the book critic. Ronald Cameron MD
--- NOTE | 2018-02-01 17:35 | PN ---
DATE: 02/01/2018 CARDIOLOGY FOLLOWUP SUBJECTIVE: The patient is asymptomatic. He is sitting in bed. PHYSICAL EXAMINATION: VITAL SIGNS: Blood pressure is 148/68, heart rate in 70s. NECK: Negative JVD. LUNGS: Without rales. HEART: S1, S2. EXTREMITIES: Without edema. The right groin site is stable. LABORATORY DATA: Hemoglobin is 11.8. Chemistries: BUN and creatinine 26 and 0.9. IMPRESSION: 1. Stable post cardiac catheterization. 2. Diabetes mellitus. 3. Pneumonia. 4. Multivessel coronary artery disease. 5. Hypercholesterolemia. Given these findings, the patient is stable post catheterization with continuous IV antibiotics for his pneumonia. We will discharge to telemetry today. I have discussed with the patient and family ad nauseam about his need for cardiac risk reduction program. Ryan Benitez MD
--- NOTE | 2018-02-01 22:43 | PN ---
DATE: 02/01/2018 SUBJECTIVE: The patient was seen earlier this morning in room 268, bed 2. No fevers and no chills. PHYSICAL EXAMINATION: VITAL SIGNS: Temperature is 98, blood pressure is 160/70, respiratory rate of 18, heart rate of 70. HEENT: Unremarkable. NECK: Supple. LUNGS: Shows decreased breath sounds. HEART: Normal S1 and S2. ABDOMEN: Soft, nontender. LABORATORY DATA: Reveals the patient has a white count of 12,900; hemoglobin of 11; platelets of 383. BUN of 26, creatinine of 0.9, procalcitonin is 1.14. Urinalysis is noted. Influenza is negative. Legionella is negative. The blood cultures are negative. MEDICATIONS: Currently, patient is on ceftriaxone and azithromycin. Procalcitonin is elevated at 1.14. ASSESSMENT AND PLAN: A 72-year-old, who was seen earlier this morning in room 268, bed 2, with past medical history of hypertension, diabetes, dyslipidemia, history of cholecystectomy, appendectomy, coronary artery disease, percutaneous coronary intervention, obesity, body mass index of 34, with severe sepsis, acute renal failure, due to left lower lobe community acquired pneumonia, on top which he has non-ST elevation myocardial infarction with acute chronic congestive heart failure, on ceftriaxone and azithromycin with white count improving. Overall, patient is improving. We will order a repeat procalcitonin. Follow white blood cell count and check on the final culture result, may be able to switch to p.o. antibiotics with discharge. Max Pierre MD
[2018-02-02 07:25] LABS: BASO # 0.05 K/mm3 (0.0-2.0); BASO % 0.4 % (0.0-3.0); EOS # 0.1 (0.0-0.7); EOS % 1.2 % (1.5-5.0); GRAN # 9.31 (1.4-6.5); GRAN % 79.2 % (50.0-68.0); HEMOGLOBIN 12.3 g/dL (14.0-18.0); LYMPH # 1.2 (1.2-3.4); LYMPH % 9.9 % (22.0-35.0); MEAN CELL VOLUME 95.2 fl (80.0-105.0); MEAN CORPUSCULAR HEMOGLOBIN 31.1 pg (25.0-35.0); MEAN CORPUSCULAR HGB CONC 32.6 g/dl (31.0-37.0); MEAN PLATELET VOLUME 9.2 fl (7.0-11.0); MONO # 1.1 (0.1-0.6); MONO % 9.3 % (1.0-6.0); RBC 3.96 10^6/uL (3.5-6.1); RED CELL DISTRIBUTION WIDTH 13.8 % (11.5-14.5); WHITE BLOOD COUNT 11.8 10^3/ul (4.5-11.0)
[2018-02-02 07:46] LABS: BLOOD UREA NITROGEN 20 mg/dL (7-21); CALCIUM 9.3 mg/dL (8.4-10.5); GFR AFRICAN-AMERICAN > 60; GFR NON-AFRICAN AMERICAN > 60
[2018-02-02] MEDS: cefTRIAXone 1 gm 1 GM/100 ML BAG IVPB SCH (09:40)
[2018-02-02 12:20] VITALS: O2SAT 93
[2018-02-02 16:13] VITALS: BP 138/54; PULSE 79; TEMP 97.5
--- NOTE | 2018-02-02 16:23 | PN ---
CARDIOLOGY FOLLOWUP DATE OF FOLLOWUP: 02/02/2018 SUBJECTIVE: The patient is feeling well. His cough has improved. OBJECTIVE: VITAL SIGNS: Blood pressure is 150/70, the heart rates in the 70s. NECK: Negative JVD. LUNGS: Decreased rhonchi without rales. HEART: Reveals S1, S2. EXTREMITIES: Without edema. LABORATORY DATA: Hemoglobin is 12.3, white count is down to 11.8, BUN and creatinine are unremarkable, glucose is 206. IMPRESSION: 1. Stable post cardiac catheterization. 2. Stable angina. 3. Coronary artery disease. 4. History of multivessel percutaneous transluminal coronary angioplasty. 5. Diabetes mellitus. 6. Pneumonia. PLAN: Given these findings, the patient has no post cardiac catheterization complications. His pneumonia is much improved. The patient is potentially for discharge today with continue his antibiotic treatment at home. Ryan Benitez MD
--- NOTE | 2018-02-03 01:50 | PN ---
DATE: SUBJECTIVE: The patient is in bed, in no acute distress. Nontoxic. The patient was seen early this morning. He is feeling much better. PHYSICAL EXAMINATION VITAL SIGNS: On exam, temperature is 97, blood pressure is 130/80, respiratory rate of 20. HEENT: Unremarkable. NECK: Supple. LUNGS: Decreased breath sounds. HEART: Normal S1 and S2. ABDOMEN: Soft. LABORATORY DATA: Reveals a white count of 11,800, hemoglobin is 12, platelets of 383. Chemistry reveals a BUN of 20 and creatinine of 1.0. Repeat procalcitonin is 0.44. Chemistries are noted. Microbiology reveals that the patient's cultures are negative. ASSESSMENT AND PLAN: This is a 72-year-old male, seen earlier this morning in room 578, bed 2, with past medical history of hypertension, diabetes, dyslipidemia, history of cholecystectomy, appendectomy, and coronary artery disease with percutaneous intervention, who was admitted with severe sepsis and acute renal failure with a left lower lobe community-acquired pneumonia on top of non-ST elevation myocardial infarction with acute on chronic congestive heart failure, may be discharged on p.o. antibiotics. Max Pierre MD
--- NOTE | 2018-02-03 05:24 | DS ---
HISTORY: This is a 72-year-old man I have known for a few years who presented to the emergency room after a week of worsening illness, cough, sputum production, then developed shortness of breath and confusion. In the emergency room, he was diagnosed with left lower lobe pneumonia, admitted to the floor. He was started on antibiotics. He has a history of diabetes, osteoarthritis, hypertension, and coronary artery disease. Initially on labs, his white count was 22,000. Lactate became elevated to 5, procalcitonin was 0.44, troponin was 0.11, which is the upper limit of indeterminate range. COURSE OF HOSPITAL STAY: The patient was admitted to the Medical Floor, seen by Infectious Disease production consultant, Dr. Pierre, and assistant athletic trainer, Dr. Ryan Benitez, who knows him well. Because of the elevated troponin and congestive heart failure picture on chest x-ray, he was taken to the Cardiac [place] [facility]. Catheterization was done. Stents were patent. There were no signs of a new blockage or acute infarct requiring intervention. Recovery was uneventful. The patient improved dramatically with antibiotics. White count came down. He was afebrile and is today ready for discharge to home. I will continue on azithromycin. I will see him in the office on Tuesday or Tuesday, three to five days from today. To call if there is any questions or problems. FINAL DISCHARGE DIAGNOSES: 1. Pneumonia, left lower lobe. 2. Indeterminate troponins in a 72-year-old man with history of coronary artery disease. 3. Hypertension. 4. Diabetes. 5. Congestive heart failure, acute systolic type per assistant athletic trainer's note. 6. Hyperlipidemia. Angel Cameron MD
== END 2018-02-02 16:37 | disposition home or self-care (01) | DRG 871 ==
LOC: ED 21:26 → ERH 23:56 → 3RSO 01-30 01:49 → 2RNO 01-31 10:12 → 5RSO 02-01 11:28
PROVIDERS: ADMIT Internal Medicine; ATTEND Internal Medicine
PROC: 4A023N7 Measurement of Cardiac Sampling and Pressure, Left Heart, Percutaneous Approach (ICD-10-PCS; principal; 2018-01-31)
PROC: B211YZZ Fluoroscopy of Multiple Coronary Arteries using Other Contrast (ICD-10-PCS; 2018-01-31)
PROC: B215YZZ Fluoroscopy of Left Heart using Other Contrast (ICD-10-PCS; 2018-01-31)
DX: A41.9 Sepsis, unspecified organism (principal); J18.9 Pneumonia, unspecified organism; I21.4 Non-ST elevation (NSTEMI) myocardial infarction; I50.23 Acute on chronic systolic (congestive) heart failure; N17.9 Acute kidney failure, unspecified; E11.9 Type 2 diabetes mellitus without complications; I45.6 Pre-excitation syndrome; I11.0 Hypertensive heart disease with heart failure; E78.00 Pure hypercholesterolemia, unspecified; E86.0 Dehydration; I25.10 Atherosclerotic heart disease of native coronary artery without angina pectoris; E66.9 Obesity, unspecified; Z68.34 Body mass index [BMI] 34.0-34.9, adult; R65.20 Severe sepsis without septic shock; Z79.02 Long term (current) use of antithrombotics/antiplatelets; Z79.82 Long term (current) use of aspirin; Z95.5 Presence of coronary angioplasty implant and graft; Z90.49 Acquired absence of other specified parts of digestive tract; Z87.891 Personal history of nicotine dependence

== ENCOUNTER 2019-03-11 12:31 | Inpatient (IN) | payer MEDICARE, OTHER ==
--- NOTE | 2019-03-11 12:49 | ED PDOC ---
Arrival/HPI - General Chief Complaint: Shortness Of Breath Time Seen by Provider: 03/11/19 12:42 Historian: Patient - History of Present Illness Narrative History of Present Illness (Text): 03/11/19 12:55 73 y/o male with past medical history of hypertension, hyperlipidemia, DM, who presents to the emergency department complaining of shortness of breath since yesterday. Patient reports edema to lower extremities that began a month ago. Patient states seeing primary care doctor Rakesh on Tuesday for edema on lower extremities. Patient denies fever, chest pain, or cough. Time/Duration: 24 hours Symptom Onset: Gradual Symptom Course: Unchanged Context: Home Past Medical History - Provider Review Nursing Documentation Reviewed: Yes - Infectious Disease Hx of Infectious Diseases: None - Cardiac Hx Hypertension: Yes - Pulmonary Hx Respiratory Disorders: No - Neurological Hx Paralysis: No - HEENT Hx HEENT Disorder: No - Renal Hx Renal Disorder: No - Endocrine/Metabolic Hx Diabetes Mellitus Type 2: Yes - Hematological/Oncological Hx Blood Transfusions: No - Integumentary Hx Dermatological Disorder: No - Musculoskeletal/Rheumatological Hx Arthritis: Yes - Gastrointestinal Hx Gastrointestinal Disorders: No - Genitourinary/Gynecological Hx Genitourinary Disorders: No - Psychiatric Hx Emotional Abuse: No Hx Physical Abuse: No Hx Substance Use: No - Surgical History Hx Appendectomy: Yes Hx Cholecystectomy: Yes - Anesthesia Hx Anesthesia Reactions: No Hx Malignant Hyperthermia: No - Suicidal Assessment Feels Threatened In Home Enviroment: No Family/Social History - Physician Review Nursing Documentation Reviewed: Yes Family/Social History: Unknown Family HX Smoking Status: Former Smoker Hx Alcohol Use: Yes (5 BEERS/WEEK) Hx Substance Use: No Hx Substance Use Treatment: No Allergies/Home Meds Allergies/Adverse Reactions: Allergies No Known Allergies Allergy (Verified 03/11/19 12:40) Home Medications: Home Meds Medication Instructions Recorded Confirmed amLODIPine [Norvasc] 10 mg PO DAILY 11/17/14 03/11/19 Aspirin [Adult Low Dose Aspirin EC] 81 mg PO DAILY 02/23/16 03/11/19 Atorvastatin [Lipitor] 10 mg PO DAILY 02/23/16 03/11/19 MetFORMIN [glucoPHAGE] 500 mg PO BID 02/23/16 03/11/19 Lisinopril/Hydrochlorothiazide 20 mg PO DAILY 05/03/17 03/11/19 [Zestoretic 20-25 mg Tablet] Review of Systems - Review of Systems Respiratory: SOB Cardiovascular: Edema (Edema of lower extremities. ) Physical Exam - Physical Exam Narrative Physical Exam (Text): 03/11/19 13:18 Gen: VS reviewed, alert, well developed, well nourished, nontoxic, mild distress. ENT: normal pharynx. Eye: EOMI, PERRL. Neck: no JVD, supple, no adenopathy. Abd: soft, nontender, no guarding, no rebound, no rigidity, normal bowel sounds. Skin: good color, no rash, no cyanosis. Psych: responds appropriately to questions, normal affect. Neuro: oriented x 3, CN2-12 intact grossly, motor intact, sensation intact. Vital Signs Reviewed: Yes Vital Signs Temp Pulse Resp BP Pulse Ox 03/11/19 12:32 97.8 F 99 H 18 166/98 H 93 L Temperature: Afebrile Blood Pressure: Hypertensive Pulse: Tachycardic Respiratory Rate: Tachypneic Appearance: Positive for: Well-Appearing, Non-Toxic Pain Distress: Mild Mental Status: Positive for: Alert and Oriented X 3 - Systems Exam Cardiovascular: Present: Irregular Rhythm (Irregular irregularly rhythm. Rapid. ) Lower Extremity: Present: Edema (Pedi edema in lateral extremities. ) Medical Decision Making ED Course and Treatment: 03/11/19 14:[address] foley. patient to be admitted for chf and new onset atrial fibrillation. patient does not exhibit respiratory distress and is clinically stable for non icu bed. patient started on anticoagulation [id number] score = 2. has -bled score =0. lasix given in the ED. consult to dr. garcia. 03/11/19 14:16 - Lab Interpretations Narrative Lab Interpretation (Text): 03/11/19 13:17 Chest X-ray Impression: Pulmonary vascular congestion/mild CHF a new finding compared to prior studies. I have reviewed the lab results: Yes - EKG Interpretation EKG Interpretation (Text): 03/11/19 14:17 ekg my read: atrial fibrillation at 103 bpm, rbbb; afib is new when compared to old ekg on 01.30.2018 Interpreted by ED Physician: Yes - Scribe Statement The provider has reviewed the documentation as recorded by the Scribe Jamilah lira All medical record entries made by the Scribe were at my direction and personally dictated by me. I have reviewed the chart and agree that the record accurately reflects my personal performance of the history, physical exam, medical decision making, and the department course for this patient. I have also personally directed, reviewed, and agree with the discharge instructions and disposition. Disposition/Present on Arrival - Present on Arrival Any Indicators Present on Arrival: No History of DVT/PE: No History of Uncontrolled Diabetes: No Urinary Catheter: No History of Decub. Ulcer: No History Surgical Site Infection Following: None - Disposition Have Diagnosis and Disposition been Completed?: Yes Diagnosis: CHF (congestive heart failure), Atrial fibrillation Disposition: HOSPITALIZED Disposition Time: 14:17 Patient Plan: Admission Condition: GUARDED
[2019-03-11 13:16] LABS: BASO # 0.06 K/mm3 (0.0-2.0); BASO % 0.7 % (0.0-3.0); EOS # 0.1 (0.0-0.7); EOS % 1.4 % (1.5-5.0); HEMOGLOBIN 13.3 g/dL (14.0-18.0); LYMPH # 1.3 (1.2-3.4); LYMPH % 14.6 % (22.0-35.0); MEAN CELL VOLUME 94.7 fl (80.0-105.0); MEAN CORPUSCULAR HEMOGLOBIN 30.6 pg (25.0-35.0); MEAN CORPUSCULAR HGB CONC 32.4 g/dl (31.0-37.0); MEAN PLATELET VOLUME 9.5 fl (7.0-11.0); MONO # 0.6 (0.1-0.6); MONO % 7.2 % (1.0-6.0); RBC 4.34 10^6/uL (3.5-6.1); RED CELL DISTRIBUTION WIDTH 14.5 % (11.5-14.5); WHITE BLOOD COUNT 8.7 10^3/uL (4.5-11.0)
[2019-03-11] MEDS ORDERED: Heparin25000 units/250ml 1/2NS 25,000 UNITS/250 ML BAG IV PRN (13:18)
--- NOTE | 2019-03-11 13:21 | RAD ---
Date of service: 03/11/2019 HISTORY: CHF COMPARISON: 01/29/2018. FINDINGS: LUNGS: Crowding of pulmonary markings particularly right lung and perihilar regions noted. No discrete infiltrate or mass. PLEURA: No significant pleural effusion identified, no pneumothorax apparent. CARDIOVASCULAR: Atherosclerotic calcifications identified primarily aortic arch. Pulmonary vascular congestion, mild. OSSEOUS STRUCTURES: No significant abnormalities. VISUALIZED UPPER ABDOMEN: Normal. OTHER FINDINGS: None. IMPRESSION: Pulmonary vascular congestion/mild CHF a new finding compared to prior studies.
[2019-03-11 13:29] VITALS: BMI 32.8
[2019-03-11 13:31] LABS: ALB/GLOB RATIO 1.2 (1.1-1.8); ALBUMIN 4.3 g/dL (3.0-4.8); ALT/SGPT 26 U/L (7-56); AST/SGOT 32 U/L (17-59); BLOOD UREA NITROGEN 27 mg/dL (7-21); CALCIUM 9.4 mg/dL (8.4-10.5); GFR NON-AFRICAN AMERICAN > 60; HDL CHOLESTEROL 55 mg/dL (29-60)
[2019-03-11 13:34] LABS: INR 1.14; PARTIAL THROMBOPLASTIN TIME 34.8 Seconds (26.9-38.3); PROTHROMBIN TIME 12.9 SECONDS (9.4-12.5)
[2019-03-11 13:42] LABS: LDL CHOLESTEROL 58 mg/dL (0-129)
[2019-03-11 13:46] LABS: B-TYPE NATRIURETIC PEPTIDE 823 pg/mL (0-450); TROPONIN I 0.02 ng/mL
[2019-03-11] MEDS: Heparin25000 units/250ml 1/2NS 25,000 UNITS/250 ML BAG IV PRN (14:12)
--- NOTE | 2019-03-11 18:26 | CARD ---
APPROVED REPORT Date of service: 03/11/2019 EKG Measurement Heart [id number] <Conclusion> Atrial flutter- fbrillation with a rapid ventricular response. PVC's isolated Right bundle branch block Left anterior fascicular block Bifascicular block Left ventricular hypertrophy with repolarization abnormality Abnormal ECG
--- NOTE | 2019-03-11 22:04 | HP ---
DATE OF EXAM: 03/11/2019 CHIEF COMPLAINT Less than 24 hours of worsening exertional dyspnea and pedal edema. HISTORY OF PRESENT ILLNESS This is a 73-year-old man I have known for a few years with a history of hypertension and coronary artery disease who was seen in the office on Tuesday, two days before the date of admission for his routine scheduled 3-month followup visit. He was completely asymptomatic, denied any palpitations, rapid heart rate, chest pain, shortness of breath and etcetera. During the course of a routine exam, his heart rate was noted to be irregular at times with several apparent extrasystoles. His rate was in the 80s. The patient noticed my concern and asked why I would be listening to his heart for so long, I explained the situation. He told me he has frequent extra beats on prior exams and reviewing his prior stress test, echocardiogram and EKGs, frequent PVCs are often noted. Since the patient was asymptomatic and his rate was controlled, no further intervention was felt to be necessary, but a 24-hour Holter was ordered. The patient did well through the course of the following day, but later on Tuesday began to notice some worsening shortness of breath with exertion. Today, Tuesday morning the day of admission his symptoms worsened, when he lay down he felt more short of breath and uncomfortable and then noticed increasing swelling in the lower extremities up to above the knees, prompting him to come to the emergency room. In the ER, he was found to be in overt failure. His heart rate was irregular. He was in atrial fibrillation with a rate in the 80s to 100 range, which later bumped up on occasion to as high as 120. He was treated with IV Lasix, I was notified and arrangements were made for admission to a monitored bed. 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 PAST MEDICAL HISTORY: Significant for hypertension since 2005, diabetes since 06/2011 when I first met him. He has been on cholesterol medication since 11/2014 with a history of coronary artery disease and stents placed x3 in 11/2014. There is no history of tuberculosis, asthma, seizures, COPD, TIA or CVA. He had an episode of gout once approximately 15 years ago. There is no history of cancer other than skin lesions that were removed. He has not had a colonoscopy, but was doing Hemoccults yearly. He follows up with his medical doctor, has had several stress tests, the most recent one I see is in 06/2018. He gets the flu shot yearly. His last Pneumovax vaccine was in 2013. Problem list in the office includes hypertension, diabetes, coronary artery disease, aortic stenosis, mitral regurgitation, a right bundle branch block and bilateral carotid stenosis in the 60% to 80% range on the left and 40% to 60% range on the right. PAST SURGICAL HISTORY: Significant for appendectomy at age 20, cholecystectomy in 1999, a PCTA and stent placement x3 in 11/2014. He had a repeat catheterization in 01/2018, but coronary artery disease was noted, the stents were patent and no further stents were placed. 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 At some point in the past he had a Mohs surgery of the scalp and ear because of a skin lesion. ALLERGIES: HE HAS NO KNOWN ALLERGIES TO MEDICATIONS. CURRENT MEDICATIONS: At home include metformin 500 mg b.i.d., Lipitor 10 mg b.i.d., Zestoretic, Norvasc 10 mg daily and aspirin 325 mg daily. SOCIAL HISTORY: Tobacco; he quit smoking in 04/2012. He has an occasional beer during the course of the week. He does not drink coffee any longer. 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 FAMILY HISTORY: His mother at age 84, father at age 52 of coronary artery disease. His father was a odbe-swmt-r-day smoker. He is the oldest of two siblings. His brother in 2005 at age 60, alcohol related complications. REVIEW OF SYSTEMS: On multiple points is negative except for arthritis and some deconditioning, chronic symptoms. PHYSICAL EXAMINATION GENERAL: The patient was seen this Tuesday afternoon in the emergency room in the holding area with his at the bedside. He is awake, alert, clear and in good spirits. HEENT: Unremarkable. Conjunctivae pink. Mucous membranes are moist. NECK: Supple without masses. Thyroid is not palpable. LUNGS: Show decreased breath sounds right and left with rales at the bases on both right and left side. HEART: Irregular and borderline tachycardic ranging at times on the overhead monitor, bumping up to 110 and then slowing down into the 80s. ABDOMEN: Obese and a bit protuberant. EXTREMITIES: Show +2 soft pitting edema of the lower extremities up to the knees and slightly above. IMPRESSION 1. New-onset atrial fibrillation. 2. Congestive heart failure, acute systolic. 3. Coronary artery disease. 4. History of hypertension. 5. Aortic stenosis. 6. Right bundle branch block. 7. Mitral regurgitation. 8. Diabetes. 9. Bilateral carotid stenosis. PLAN The patient will be admitted to a monitored bed. Laster Hand Dr. Benitez has been notified. IV Lasix was given in the emergency room and will be continued 40 mg every 12 hours. I will add a beta enedina and a low-dose calcium channel enedina to slow the heart rate. I will defer to Dr. Benitez to his preference and choice and the possible need for eventual cardioversion. The patient was placed on a heparin drip in the emergency room. We will continue the heparin for now, probably turn to Eliquis and/or coumadin in the next few days. Morning labs were ordered. We will follow. Angel Cameron MD MTDD
[2019-03-12 04:26] LABS: BASO # 0.08 K/mm3 (0.0-2.0); BASO % 0.9 % (0.0-3.0); EOS # 0.2 (0.0-0.7); EOS % 2.1 % (1.5-5.0); HEMOGLOBIN 12.5 g/dL (14.0-18.0); LYMPH # 1.9 (1.2-3.4); LYMPH % 21.8 % (22.0-35.0); MEAN CELL VOLUME 94.4 fl (80.0-105.0); MEAN CORPUSCULAR HEMOGLOBIN 30.6 pg (25.0-35.0); MEAN CORPUSCULAR HGB CONC 32.4 g/dl (31.0-37.0); MONO # 0.8 (0.1-0.6); MONO % 8.8 % (1.0-6.0); RBC 4.09 10^6/uL (3.5-6.1); RED CELL DISTRIBUTION WIDTH 14.5 % (11.5-14.5); WHITE BLOOD COUNT 8.6 10^3/uL (4.5-11.0)
[2019-03-12 04:35] LABS: BLOOD UREA NITROGEN 32 mg/dL (7-21); GFR NON-AFRICAN AMERICAN 59
[2019-03-12] MEDS: Heparin25000 units/250ml 1/2NS 25,000 UNITS/250 ML BAG IV PRN (05:59)
--- NOTE | 2019-03-12 12:42 | IP.NPCORE ---
Heart Failure Core Measure - Heart Failure Left Ventricular Function to be assessed after discharge: Yes CHOCO Inhibitor Prescribed: Yes Beta-Ome Prescribed: Metoprolol Succinate Angiotensin II Receptor Moe Prescribed: Yes AnticoagulationTherapy for Atrial Fibrillation/Atrialflutter: Yes Aldosterone Antagonist Prescribed: Yes Hydralazine Nitrate Prescribed: Yes Implantable Cardioverter Defibrillator Therapy: No Contraindication/Reason for not providing: to be determined. echo pending Cardiac Resynchronization Therapy Prescribed: No Contraindication/Reason for not providing: to be determined - new afib - Follow up Will be discharged to: Home Follow Up Date (must be within 7 days from discharge): 03/21/19 (recommended )
--- NOTE | 2019-03-12 15:08 | PN ---
DATE: 03/12/2019 SUBJECTIVE: The patient is a 73-year-old male, who was admitted to the [facility] on 03/11/2019 with congestive heart failure and new onset atrial fibrillation, fibrillation was at a moderate rate between 80 and 100; however, the patient had noticed that over the past day or 2, he became increasingly short of breath, dyspnea on exertion and orthopnea. The patient is known to have a history of hypertension, diabetes, and hyperlipidemia. He also suffers from aortic stenosis, mitral regurgitation, right bundle-branch block and bilateral carotid stenoses, worse on the left than on the right. He is status post appendectomy and cholecystectomy status post PTCA, status post retinal artery occlusion in the left eye, status post bilateral cataract surgery and status post Mohs surgery for a scalp lesion. When seen today, the patient is lying in bed comfortably. He says he feels much better. His respirations are easy. Family members at bedside. Heart sounds are still irregularly irregular. Lungs are clear anteriorly and laterally. Abdomen is soft and nontender on physical exam. LABORATORY DATA: Morning laboratories revealed a hemoglobin and hematocrit to be 12.5 and 38.6 respectively. Blood urea nitrogen is 32, creatinine is 1.8. ASSESSMENT AND PLAN: The patient is to be reevaluated by Dr. Benitez. Ideas of echocardiogram, SHE and possible cardioversion are being entertained. The case to be discussed with Dr. Benitez. Ronald Cameron MD
--- NOTE | 2019-03-12 18:20 | CON ---
DATE OF CONSULTATION: 03/12/2019 CARDIOLOGY CONSULTATION HISTORY: The patient is a 73-year-old male, who presents with new onset atrial fibrillation. PAST MEDICAL HISTORY: The patient's past medical history includes hypertension, diabetes mellitus, hyperlipidemia, as well as nonobstructive CAD. He admits to edema in the lower extremity. He was found to have good LV function on echocardiogram in 2018 with mild aortic stenosis and mild pulmonary hypertension, which was on echo is 2018. Currently, the patient denies shortness of breath. Denies chest pain. His past medical history includes diabetes mellitus, hypertension, and hypercholesterolemia. SOCIAL HISTORY: The patient denies smoking. REVIEW OF SYSTEMS: Reviewed. No cardiac symptomatology can be elicited. PHYSICAL EXAMINATION: VITAL SIGNS: Blood pressure 155/72, the heart rate is in atrial fibrillation in the 70s. NECK: Negative JVD. LUNGS: Without rales. CARDIAC: Heart rate S1, S2. EXTREMITIES: Without edema. EKG shows atrial fibrillation with nonspecific ST-T changes. Hemoglobin is 12.5. Chemistries, BUN and creatinine are 32 and 1.2 with a glucose of 129. IMPRESSION: 1. New-onset atrial fibrillation. 2. Diabetes mellitus. 3. Hypertension. 4. Hypercholesterolemia. 5. Nonobstructive coronary artery disease. 6. New-onset atrial fibrillation. 7. Mild aortic stenosis. 8. Mild pulmonary hypertension. PLAN: Given these findings, we will obtain an echocardiogram, we will change his anticoagulation from heparin to Eliquis, and we will start the patient on sotalol. Ryan Benitez MD
[2019-03-13 05:58] VITALS: RESP 20
--- NOTE | 2019-03-13 10:59 | CP.PCM.APN ---
Subjective - Date & Time of Evaluation Date of Evaluation: 03/13/19 Time of Evaluation: 10:10 - Subjective Subjective: pt seen and examined at bedside , states he feels better and his LE swelling is improving Review of Systems - Constitutional Constitutional: As Per HPI Objective - Vital Signs/Intake and Output Vital Signs (last 24 hours): Temp Pulse Resp BP Pulse Ox 97 F L 81 20 125/68 95 03/13/19 05:58 03/13/19 10:44 03/13/19 05:58 03/13/19 10:44 03/13/19 05:58 Intake and Output: 03/13/19 03/13/19 06:59 18:59 Intake Total 1642 Balance 1642 - Medications Medications: Current Medications Apixaban (Eliquis) 5 mg PO BID [facility]; Protocol Last Admin: 03/13/19 10:33 Dose: 5 mg Aspirin (Ecotrin) 81 mg PO DAILY [facility] Last Admin: 03/13/19 10:33 Dose: 81 mg Atorvastatin Calcium (Lipitor) 10 mg PO DIN [facility] Last Admin: 03/12/19 17:40 Dose: 10 mg Diltiazem HCl (Cardizem) 30 mg PO QID [facility] Last Admin: 03/13/19 10:32 Dose: 30 mg Furosemide (Lasix) 40 mg IVP 0600,1800 [facility] Last Admin: 03/13/19 05:44 Dose: 40 mg Lisinopril (Zestril) 10 mg PO DAILY [facility] Last Admin: 03/13/19 10:33 Dose: 10 mg Metformin HCl (Glucophage) 500 mg PO BID [facility] Last Admin: 03/13/19 10:33 Dose: 500 mg Metoprolol Tartrate (Lopressor) 25 mg PO BRKDIN [facility] Last Admin: 03/13/19 08:21 Dose: 25 mg Sotalol HCl (Betapace) 80 mg PO BID [facility] Last Admin: 03/13/19 10:44 Dose: 80 mg - Labs Labs: 03/12/19 04:15 03/12/19 04:15 PT 12.9 SECONDS (9.4-12.5) H 03/11/19 13:00 INR 1.14 03/11/19 13:00 APTT 99.2 Seconds (26.9-38.3) H 03/12/19 12:35 - Constitutional Appears: No Acute Distress - Head Exam Head Exam: ATRAUMATIC, NORMAL INSPECTION - ENT Exam ENT Exam: Mucous Membranes Moist - Neck Exam Neck Exam: Normal Inspection - Respiratory Exam Respiratory Exam: Decreased Breath Sounds, NORMAL BREATHING PATTERN - Cardiovascular Exam Cardiovascular Exam: +S1, +S2 - GI/Abdominal Exam GI & Abdominal Exam: Soft, Normal Bowel Sounds - Extremities Exam Extremities Exam: Full ROM, Pedal Edema - Back Exam Back Exam: NORMAL INSPECTION - Neurological Exam Neurological Exam: Alert, Awake, Normal Gait - Psychiatric Exam Psychiatric exam: Normal Affect - Skin Skin Exam: Dry, Intact Assessment and Plan - Assessment and Plan (Free Text) Plan: 73 yr old male with pmh sig for HTN and cad admitted with LE swelling and SOB with exertion admitted for CHF and found to have new Afib now admitted for further evaluation. pt with cardiology eval and ECHO will follow BPCI/TIC - BPCIA/TIC Educated pt/family on BPCIA/CIR/Med to Bed Programs: Yes Flyers given, including CMS Beneficiary letter: Yes Pt/family verbalized understanding & agreed to program: Yes
--- NOTE | 2019-03-13 16:11 | CARD ---
APPROVED REPORT Date of service: 03/13/2019 EXAM: Two-dimensional and M-mode echocardiogram with Doppler and color Doppler. INDICATION Atrial Fibrillation 2D DIMENSIONS Left Atrium (2D)4.3 (1.6-4.0cm)IVSd1.3 (0.7-1.1cm) LVDd4.8 (3.9-5.9cm)LVOT Diameter2.2 (1.8-2.4cm) PWd1.2 (0.7-1.1cm) M-Mode DIMENSIONS Aortic Root4.10 (2.2-3.7cm)Aortic Cusp Exc.0.90 (1.5-2.0cm) Aortic Valve AoV Peak Hjzdxohr919.0cm/sAoV VTI65.2cmAO Peak GR.44mmHg LVOT Peak Rcrtgaeh98.0cm/sLVOT VTI19.50cmAO Mean GR.24mmHg JULIANA (VMAX)0.80ce7VDJ (VTI)1.67ji7TV P 1/2 Zagt866va Mitral Valve E/A ratio0.0 TDI E/Lateral E'0.0E/Medial E'0.0 Pulmonary Valve PV Peak Qskkwkwd21.4cm/sPV Peak Grad.1mmHg Tricuspid Valve TR Peak Mfdycvbc164zq/sRAP LELFDWLE75rbGkTD Peak Gr.34mmHg TBVQ46xqXy LEFT VENTRICLE The left ventricle is normal size. There is borderline concentric left ventricular hypertrophy. The left ventricular ejection fraction is within the normal range. Regional wall motion abnormalities noted. RIGHT VENTRICLE The right ventricle is normal size. There is normal right ventricular wall thickness. The right ventricular systolic function is normal. ATRIA The left atrium is mildly dilated. The right atrium is mildly dilated. AORTIC VALVE The aortic valve is moderately to severely calcified. There is mild aortic regurgitation. There is moderate to severe valvular aortic stenosis. MITRAL VALVE Mitral annular calcification is moderate to severe. Mitral regurgitation is mild. There is no mitral valve stenosis. TRICUSPID VALVE There is mild tricuspid regurgitation. There is mild pulmonary hypertension. PULMONIC VALVE There is mild pulmonic valvular regurgitation. GREAT VESSELS The aortic root is mildly enlarged. The IVC is normal in size and collapses >50% with inspiration. PERICARDIAL EFFUSION There is no pericardial effusion. <Conclusion> There is borderline concentric left ventricular hypertrophy. The left ventricular ejection fraction is within the normal range. Regional wall motion abnormalities noted. The aortic valve is moderately to severely calcified. There is moderate to severe valvular aortic stenosis. There is mild aortic regurgitation. There is mild tricuspid regurgitation. There is mild pulmonary hypertension.
--- NOTE | 2019-03-13 16:43 | US ---
PROCEDURE: Bilateral carotid artery duplex ultrasound HISTORY: Carotid stenosis PHYSICIAN(S): Ryan Mcdaniel MD. TECHNIQUE: Duplex sonography and color-flow Doppler were used to evaluate the carotid bifurcations and limited segments of the vertebral arteries bilaterally. FINDINGS: There is diffuse moderate heterogeneous echo plaque noted at the carotid bifurcations bilaterally. The peak systolic velocity in the proximal right internal carotid artery is 145 cm/sec. This corresponds to a 40-59 percent proximal right ICA stenosis. Normal systolic velocities are noted in the proximal right external carotid artery. There is antegrade flow in the right vertebral artery. The peak systolic velocity in the proximal left internal carotid artery is 102 cm/sec. This corresponds to a 20 to 39% proximal left ICA stenosis. Normal systolic velocities are noted in the proximal left external carotid artery. There is antegrade flow in the left vertebral artery. IMPRESSION: 1. 40-59 percent proximal right ICA stenosis 2. 20-39 percent proximal left ICA stenosis 3. Antegrade flow in both vertebral arteries
--- NOTE | 2019-03-13 20:24 | PN ---
DATE: 03/13/2019 CARDIOLOGY FOLLOWUP SUBJECTIVE: The patient is without complaints. PHYSICAL EXAMINATION: VITAL SIGNS: Blood pressure 109/60, heart rates in the 70s, atrial fibrillation. NECK: Negative JVD. LUNGS: Without rales. HEART: S1, S2. EXTREMITIES: Without edema. LABORATORY DATA: Hemoglobin is 12.5. Glucose varies from 169 to 247. Repeat echocardiogram is pending. IMPRESSION: 1. New-onset atrial fibrillation. 2. Stable angina. 3. Coronary artery disease. 4. Diabetes mellitus. 5. Hypertension. 6. Hypercholesterolemia. 7. Mild aortic stenosis. 8. Mild pulmonary hypertension. PLAN: Given these findings, the patient's heart rate is controlled with sotalol. We will discontinue the metoprolol today. We will continue the Eliquis. The heparin is off. We will await the results of the echocardiogram. Ryan Benitez MD
[2019-03-14 06:37] VITALS: TEMP 97.8; O2SAT 96
[2019-03-14 09:39] VITALS: BP 132/83
--- NOTE | 2019-03-14 10:20 | CP.PCM.PCO ---
Physician Communication Note - Physician Communication Note Physician Communication Note: wrote rx for sotalol 80mg and eliquis - pt to hold eliquis after tuesday Additional Comments - Additional Comments Additional Comments: for cath tuesday as outpatient, rebecca with pt and RN .
--- NOTE | 2019-03-14 12:27 | PN ---
DATE: 03/13/2019 DAILY PROGRESS NOTE This is a progress note dated yesterday, Tuesday03/13/2019. SUBJECTIVE: The patient was seen this Tuesday morning in room 265, bed 2. Comfortable in no acute distress. Feeling well. Markedly improved, have an diuresed over 7 pounds. No longer short of breath. No longer dyspnea on exertion. Echocardiogram was done earlier today. His Lasix has been decreased to once daily. PHYSICAL EXAMINATION: LUNGS: Show good aeration right and left. HEART: Irregular, but not tachycardic. EXTREMITIES: Shows no edema. ASSESSMENT AND PLAN: I spoke with Dr. Benitez this morning regarding a sotalol. We will discontinue the metoprolol. Continue Cardizem for now. The patient did increase activity and ambulation, may be ready for discharge soon. We will order carotid ultrasound noted on earlier carotid ultrasound. We will follow. High probability, the patient will be ready for discharge tomorrow, Tuesday on 03/14/2019. Angel Cameron MD
--- NOTE | 2019-03-14 14:05 | PN ---
DATE: 03/14/2019 SUBJECTIVE: The patient is comfortable. He ambulated without issues. LABORATORY DATA: Blood pressure 132/83, the heart rates in the 50s, atrial fibrillation. NECK: Negative JVD. LUNGS: Without rales. HEART: II/ systolic ejection murmur. EXTREMITIES: Without edema. LABORATORY DATA: Glucose is 150, hemoglobin is 12.5. ECHOCARDIOGRAM: Echocardiogram reveals a calcified and stenotic aortic valve. The peak gradient is 65 mmHg. LV function is normal with LVH. IMPRESSION: 1. New-onset atrial fibrillation. 2. Critical aortic stenosis. 3. Diabetes mellitus. 4. Obesity. 5. Hypertension. 6. Hypercholesterolemia. Given these findings, the patient's heart rate is well-controlled. He is on Eliquis as well as sotalol. We will discontinue his diltiazem today. From a cardiac perspective, the patient can be discharged. We will arrange for an outpatient echocardiogram on Tuesday since he is on Eliquis now. His last dose of Eliquis should be Tuesday night which I have discussed with the patient in detail. Catheterization in preparation for possible TAVR was discussed with him in detail. Ryan Benitez MD
[2019-03-14 14:25] VITALS: PULSE 65
== END 2019-03-14 15:02 | disposition home or self-care (01) | DRG 291 ==
LOC: ED 12:31 → ERH 14:25 → 2RNO 15:38
PROVIDERS: ADMIT Internal Medicine; ATTEND Internal Medicine
DX: I11.0 Hypertensive heart disease with heart failure (principal); I50.21 Acute systolic (congestive) heart failure; I48.91 Unspecified atrial fibrillation; E11.9 Type 2 diabetes mellitus without complications; I25.10 Atherosclerotic heart disease of native coronary artery without angina pectoris; I45.10 Unspecified right bundle-branch block; I65.23 Occlusion and stenosis of bilateral carotid arteries; I25.118 Atherosclerotic heart disease of native coronary artery with other forms of angina pectoris; I27.20 Pulmonary hypertension, unspecified; E78.00 Pure hypercholesterolemia, unspecified; E78.5 Hyperlipidemia, unspecified; I08.0 Rheumatic disorders of both mitral and aortic valves; E66.9 Obesity, unspecified; Z68.31 Body mass index [BMI] 31.0-31.9, adult; Z87.891 Personal history of nicotine dependence; Z95.5 Presence of coronary angioplasty implant and graft; Z79.01 Long term (current) use of anticoagulants; Z79.82 Long term (current) use of aspirin; Z79.84 Long term (current) use of oral hypoglycemic drugs

== ENCOUNTER 2019-03-19 05:58 | Day surgery (SDC) | payer MEDICARE, OTHER ==
[2019-03-15 09:34] VITALS: BMI 31.5
[2019-03-19 07:00] LABS: BASO # 0.06 K/mm3 (0.0-2.0); BASO % 0.6 % (0.0-3.0); EOS # 0.2 (0.0-0.7); EOS % 1.7 % (1.5-5.0); LYMPH # 1.7 (1.2-3.4); LYMPH % 17.2 % (22.0-35.0); MEAN CELL VOLUME 94.5 fl (80.0-105.0); MEAN CORPUSCULAR HEMOGLOBIN 30.7 pg (25.0-35.0); MEAN CORPUSCULAR HGB CONC 32.5 g/dl (31.0-37.0); MEAN PLATELET VOLUME 9.7 fl (7.0-11.0); MONO # 0.7 (0.1-0.6); MONO % 6.7 % (1.0-6.0); RBC 4.56 10^6/uL (3.5-6.1); RED CELL DISTRIBUTION WIDTH 14.4 % (11.5-14.5)
[2019-03-19] MEDS ORDERED: Lidocaine PF 2% (5 ml) Inj (For Cardiac Arrhy) ONE (07:04)
[2019-03-19 07:13] LABS: INR 1.24; PARTIAL THROMBOPLASTIN TIME 37.4 Seconds (26.9-38.3)
[2019-03-19 07:15] LABS: BLOOD UREA NITROGEN 42 mg/dL (7-21); CALCIUM 8.9 mg/dL (8.4-10.5); GFR NON-AFRICAN AMERICAN > 60; HDL CHOLESTEROL 44 mg/dL (29-60)
[2019-03-19] MEDS ORDERED: Iohexol 350mgl/ml 50 ML ONE (07:16)
[2019-03-19] MEDS ORDERED: Iodixanol 320 MG/ML 200 ML BOTTLE IV ONE (07:16)
[2019-03-19] MEDS ORDERED: Iodixanol 320 MG/ML 100 ML BOTTLE IV ONE ×2 (07:16→08:22)
[2019-03-19 07:21] LABS: LDL CHOLESTEROL 61 mg/dL (0-129)
[2019-03-19] MEDS ORDERED: Midazolam 2 MG/2 ML VIAL ONE ×2 (08:04→08:16)
[2019-03-19] MEDS ORDERED: Flumazenil 0.1 mg/ml Inj (5ml) IVP ONE (08:27)
[2019-03-19] MEDS ORDERED: Sodium Chloride 0.9% 1,000 ML IV SCH (09:30)
[2019-03-19 09:31] VITALS: TEMP 97.1
[2019-03-19 11:03] VITALS: O2SAT 98
[2019-03-19 12:45] VITALS: RESP 18
--- NOTE | 2019-03-19 12:45 | CARDCATH ---
PROCEDURE DATE: 03/19/2019 HISTORY: The patient is a 73-year-old male who presents with history of aortic stenosis as well as coronary artery disease. Because stress test was abnormal as well as echocardiogram was abnormal, cardiac catheterization was recommended. PROCEDURES : Right and left heart catheterization with coronary arteriography, left ventriculogram, supra-aortic valvular injection as well as cardiac outputs were performed. The right femoral artery was cannulated with 6-[place] sheath. The right femoral vein was cannulated with a 7-[place] sheath. There were no complications. I performed moderate sedation which included the presence of an independent trained observer that assisted in monitoring the patient's level of consciousness and physiologic status. After administration of Versed and fentanyl, my intra service time was 45 minutes. Findings on catheterization included right heart pressures which revealed a right mean atrial pressure of 10 mmHg, RV pressure was 62/12 mmHg, pulmonary artery pressures were 63/20 mmHg, mean pulmonary capillary wedge pressure was 18 mmHg. Simultaneous aortic root and LV systolic pressure revealed a [id number] gradient of 33 mmHg. The mean gradient across the aortic valve was 27 mmHg with a cardiac output of 5.3 and a cardiac index of 2.39. The aortic valve area was calculated to be 1 sq cm with a cardiac valve index was calculated to be 0.6. His coronary anatomy was visualized. The patient had a right-dominant circulation. The RCA has diffuse atherosclerosis with 40% to 50% stenosis in the distal portion. The left main artery was unremarkable. The LAD revealed a patent stent in its mid to distal portion. The diagonal vessels revealed diffuse atherosclerosis without critical lesions. The circumflex artery revealed diffuse atherosclerosis with a 50% stenosis at the takeoff of the obtuse marginal branch. Supra-aortic valvular injection revealed no aortic insufficiency. LV function is normal with an EF of 60%. AngioSeal was used to close the femoral artery site. Mynx system was used to close the femoral vein site. The patient tolerated the procedure well. In summary, the procedure revealed, 1. Azxq-ji-[id number] critical aortic stenosis. 2. Normal left ventricular function. 3. No aortic insufficiency. 4. Patent stent in the left anterior descending artery. 5. A 50% to 60% stenoses in the circumflex artery. 6. Moderate pulmonary hypertension. Given these findings, we will discuss with the patient about being evaluated at a TAVR Center for possible TAVR. We will discuss with the family in detail. Ryan Benitez MD
[2019-03-19 15:20] VITALS: BP 140/65; PULSE 77
== END 2019-03-19 15:30 | disposition home or self-care (01) ==
LOC: CATH 05:58
PROVIDERS: ATTEND Internal Medicine Cardiovascular Disease
DX: I35.0 Nonrheumatic aortic (valve) stenosis (principal); I25.10 Atherosclerotic heart disease of native coronary artery without angina pectoris; I27.20 Pulmonary hypertension, unspecified; I10 Essential (primary) hypertension; E78.00 Pure hypercholesterolemia, unspecified; I48.91 Unspecified atrial fibrillation
CPT/HCPCS: 36415; 80048; 80061; 85025; 85610; 85730; 86850; 86900; 93460; 93567; 99152; 99153; C1760 ×2; C1769 ×2; C1894; C2629; J1644; J2250; J3010; J7030; J7040; Q9966; Q9967 ×2